=== PATIENT | female | born 1995 | race Caucasian/White ===

== ENCOUNTER → 2019-05-12 | Outpatient (REF) | payer OTHER ==
[2019-05-12 16:52] LABS: HCG, SERUM QUALITATIVE NEGATIVE (NEGATIVE)
[2019-05-12 16:53] LABS: PLATELET COUNT, AUTOMATED 300 10^3/uL (150-450)
[2019-05-12 17:02] LABS: INR 1.01
[2019-05-12 17:03] LABS: PARTIAL THROMBOPLASTIN TIME 27.2 SECONDS (25.0-38.4)
== END ==
LOC: M LABDRAW1 16:17
PROVIDERS: ATTEND Physician Assistant
DX: Z79.01 Long term (current) use of anticoagulants (principal); D69.1 Qualitative platelet defects

== ENCOUNTER → 2019-12-06 | Outpatient (REF) | payer OTHER, BC, MEDICAID ==
[2019-12-06 16:15] LABS: PLATELET COUNT, AUTOMATED 279 10^3/uL (150-450)
[2019-12-06 16:32] LABS: INR 1.02; PARTIAL THROMBOPLASTIN TIME 26.6 SECONDS (25.0-38.4); PROTHROMBIN TIME 13.1 SECONDS (11.8-14.0)
[2019-12-06 16:33] LABS: HCG, SERUM QUALITATIVE NEGATIVE (NEGATIVE)
== END ==
LOC: M LABDRAW1 15:29
PROVIDERS: ATTEND Physician Assistant
DX: M53.3 Sacrococcygeal disorders, not elsewhere classified (principal)

== ENCOUNTER → 2020-03-08 | Outpatient (CLI) | payer BC, OTHER | LOC: M LABSMTC 09:26 | PROVIDERS: ATTEND Physical Medicine & Rehabilitation | DX: Z03.818 Encounter for observation for suspected exposure to other biological agents ruled out (principal); Z11.59 Encounter for screening for other viral diseases ==

== ENCOUNTER → 2020-08-28 | Outpatient (CLI) | payer BC, OTHER ==
[2020-08-28 13:53] LABS: PLATELET COUNT, AUTOMATED 289 10^3/uL (150-450)
[2020-08-28 14:00] LABS: COLLAGEN EPINEPHRINE 107 SECONDS (74-162)
== END ==
LOC: M PLALAB 11:19
PROVIDERS: ATTEND Physician Assistant
DX: M47.817 Spondylosis without myelopathy or radiculopathy, lumbosacral region (principal)